=== PATIENT | male | born 1970 | race Caucasian/White ===

== ENCOUNTER 2024-07-13 08:18 | Emergency (ER) | payer BC, SELFPAY ==
[2024-07-13 08:25] VITALS: BP 138/88; PULSE 79; RESP 16; TEMP 36.1; O2SAT 95; BMI 35.7
--- NOTE | 2024-07-13 08:47 | ED.GENADULT ---
HPI - General Adult General Date Seen: 07/13/24 Chief complaint: Skin/Abscess/Foreign Body Stated complaint: rash on torso-hernia surgery 10 days ago Time Seen by Provider: 07/13/24 08:22 History of Present Illness HPI narrative: Patient is a 53-year-old generally healthy man who had bilateral hernia surgery at [facility] about a week and half ago. Procedure went well, no issues since then. A couple days ago he noted a little bit of a rash developing on his torso which has since spread. He has a little bit of itching in his groin, the rash itself does not seem particularly itchy. He has not had any fevers, does not have any significant pain. Has a history of varicocele and says that continues to be very minimally symptomatic but does not feel any different than usual. Wound sites are not bothering him. He denies any viral symptoms. No other complaints. He called his surgery clinic and they advised that he be seen in the ER to rule out a bacterial infection. Related Data Home Medications ?Medication ?Instructions ?Recorded ?Confirmed No Known Home Medications 07/13/24 07/13/24 Allergies Allergy/AdvReac Type Severity Reaction Status Date / Time No Known Drug Allergies Allergy Verified 07/13/24 08:29 [facility] Social History Smoking Status: Never smoker How often do you have a drink containing alcohol: never How often do you have six or more drinks on one occasion: Never AUDIT-C Alcohol total score: 0 Non-prescribed substance use: denies use Exam Narrative: Exam Narrative: Vital signs reviewed In general, alert, well-appearing man. : He has a little bit of fullness in the scrotum consistent with his varicocele. There is no erythema, edema, induration, or tenderness. No evidence of wound infection. Skin: On his primarily torso he has a pinkish erythematous and slightly lacy looking rash. There are no hives, no blisters, no petechia or purpura. Const: Vital Signs, click to edit/add: Vital Signs - 24 hr 07/13/24 08:25 Temperature 96.9 F L Pulse Rate [Pulse Oximeter] 79 Respiratory Rate 16 Blood Pressure [Ri ght Upper Arm] 138/88 Pulse Oximetry 95 Oxygen Delivery Me thod Room Air Course Course ED Course: Discussed with him that overall this looks most like drug eruption, perhaps to something that he had during his surgery, he had taken oxycodone for short period after surgery but he has not had that for a week or so. He is not on any antibiotics currently. He does have mesh. I do not see anything concerning here and certainly nothing that looks bacterial. I do not see anything that looks candidal either. Discussed that we can try a little prednisone for few days, this may simply resolve, if it does not resolve over the next week would recommend primary care follow-up. Discussed reasons to return such as new symptoms like fever, worsening redness, pain. Vital Signs Vital signs: Initial Vital Signs Temperature 96.9 F L 07/13/24 08:25 Temperature Source Temporal Artery Scan 07/13/24 08:25 Pulse Rate 79 07/13/24 08:25 Respiratory Rate 16 07/13/24 08:25 Blood Pressure 138/88 07/13/24 08:25 Blood Pressure Mean 104 07/13/24 08:25 Blood Pressure Position Sitting 07/13/24 08:25 Pulse Oximetry 95 07/13/24 08:25 Oxygen Delivery Method Room Air 07/13/24 08:25 Vital Signs Temperature 96.9 F L 07/13/24 08:25 Pulse Rate 79 07/13/24 08:25 Respiratory Rate 16 07/13/24 08:25 Blood Pressure 138/88 07/13/24 08:25 Pulse Oximetry 95 07/13/24 08:25 Oxygen Delivery Method Room Air 07/13/24 08:25 Temperature 96.9 F L 07/13/24 08:25 Pulse Rate 79 07/13/24 08:25 Respiratory Rate 16 07/13/24 08:25 Blood Pressure 138/88 07/13/24 08:25 Pulse Oximetry 95 07/13/24 08:25 Oxygen Delivery Method Room Air 07/13/24 08:25 Discharge Plan Discharge Clinical Impression: Rash Patient Disposition: Home, Self-Care Condition: Stable Instructions: Acute Rash (ED) Additional Instructions: Trial of prednisone. For worsening or new symptoms such as fever, blistering, pain or other significant changes return to the ER at any time. If rash does not resolve over the next week, please see primary care. Prescriptions: No Action No Known Home Medications Stand Alone Forms: [employer] Info Instructions
== END 2024-07-13 09:10 | disposition home or self-care (01) ==
PROVIDERS: Emergency Provider Emergency Medicine; PCP Family Medicine
DX: R21 Rash and other nonspecific skin eruption (principal)
CPT/HCPCS: 99282; 99283